=== PATIENT | male | born 1980 | race American Indian/Alaskan Native ===

== ENCOUNTER 2021-11-16 11:54 | Emergency (ER) | payer SELFPAY ==
[2021-11-16] MEDS ORDERED: LIDOCAINE (1%) 10 MG/1 ML VIAL 20 ML MDV INFILTRATI ONE (14:19)
[2021-11-16] MEDS ORDERED: SULFAMETHOXAZOLE/TRIMETHOPRIM 800/160MG DS TAB PO ONE (14:21)
[2021-11-16] MEDS ORDERED: IBUPROFEN 600 MG TAB PO ONE (14:21)
--- NOTE | 2021-11-16 15:44 | Emergency Department Report ---
ED Extremity Problem HPI - General Chief complaint: Extremity Problem,Nontraumatic Stated complaint: R ARM PAIN WITH BUMP/PAINFUL SWOLLEN GROIN Source: patient Mode of arrival: Ambulatory Limitations: No Limitations - History of Present Illness Initial comments: Patient is a 41-year-old -[place] male with no past medical history except chronic recurrent IV drug abuse who presents to the ED with complaint of acute onset persistent painful swollen mild erythematous maculopapular rash on right upper arm for the last 1 week after injecting himself with IV drugs. Patient states that the pain has worsened especially in the last 3 days. Patient states that he had similar symptoms in the same area about 2 or 3 years ago and was incised and drained and resolved after taking antibiotics. Patient denies fever, chills, nausea and vomiting, dizziness, syncope, chest pain, shortness of breath, numbness and tingling or weakness of right arm, fall or back pain. MD Complaint: extremity pain (right upper arm pain due to swollen erythematous rash), extremity swelling (Mildly swollen right upper arm with pain), other (Mild erythematous maculopapular rash on right upper arm) -: Gradual, week(s) (1) Location: upper extremity (Right upper arm) History of Same: Yes (Yes chronic IV drug use) -: Yes arthralgia, No fever, No associated dyspnea, No associated chest pain Radiation: proximal Severity scale (0 -10): 7 Quality: aching, sharp Consistency: constant Improves with: nothing Worsens with: nothing Associated Symptoms: denies other symptoms, arthralgias, rash (Mild erythematous maculopapular rash on right upper arm). denies: chest pain, fever, myalgias - Related Data Previous Rx's Medication Instructions Recorded Last Taken Type Clindamycin [Clindamycin CAP] 300 mg PO Q8H #30 cap 11/16/21 Unknown Rx Ibuprofen [Motrin] 800 mg PO Q8HR PRN #30 tablet 11/16/21 Unknown Rx Sulfamethoxazole/Trimethoprim 1 each PO Q12H #20 tab 11/16/21 Unknown Rx [Bactrim DS TAB] Allergies Allergy/AdvReac Type Severity Reaction Status Date / Time No Known Allergies Allergy Unverified 11/16/21 12:55 ED Review of Systems ROS: Stated complaint: R ARM PAIN WITH BUMP/PAINFUL SWOLLEN GROIN Other details as noted in HPI Constitutional: denies: chills, fever Eyes: denies: eye pain, eye discharge, vision change ENT: denies: ear pain, throat pain Respiratory: denies: cough, shortness of breath, wheezing Cardiovascular: denies: chest pain, palpitations Endocrine: no symptoms reported Gastrointestinal: denies: abdominal pain, nausea, diarrhea Genitourinary: denies: urgency, dysuria Musculoskeletal: arthralgia (Right upper arm pain due to mild erythematous maculopapular rash). denies: back pain, joint swelling Skin: rash (Mildly erythematous maculopapular rash on right upper arm). denies: lesions Neurological: denies: headache, weakness, paresthesias Psychiatric: denies: anxiety, depression Hematological/Lymphatic: denies: easy bleeding, easy bruising ED Past Medical Hx - Past Medical History Previous Medical History?: No - Surgical History Past Surgical History?: No - Medications Home Medications: Home Medications Medication Instructions Recorded Confirmed Last Taken Type Clindamycin [Clindamycin CAP] 300 mg PO Q8H #30 cap 11/16/21 Unknown Rx Ibuprofen [Motrin] 800 mg PO Q8HR PRN #30 tablet 11/16/21 Unknown Rx Sulfamethoxazole/Trimethoprim 1 each PO Q12H #20 tab 11/16/21 Unknown Rx [Bactrim DS TAB] ED Physical Exam - General Limitations: No Limitations General appearance: alert, in no apparent distress - Head Head exam: Present: atraumatic, normocephalic, normal inspection - Eye Eye exam: Present: normal appearance, PERRL, EOMI Pupils: Present: normal accommodation - ENT ENT exam: Present: normal exam, normal orophraynx, mucous membranes moist, TM's normal bilaterally, normal external ear exam - Neck Neck exam: Present: normal inspection, full ROM - Respiratory Respiratory exam: Present: normal lung sounds bilaterally. Absent: respiratory distress, wheezes, rales, rhonchi, stridor, chest wall tenderness, accessory muscle use, decreased breath sounds, other - Cardiovascular Cardiovascular Exam: Present: regular rate, normal rhythm, normal heart sounds. Absent: systolic murmur, diastolic murmur, rubs, gallop - GI/Abdominal GI/Abdominal exam: Present: soft, normal bowel sounds. Absent: tenderness, guarding, hyperactive bowel sounds, hypoactive bowel sounds - Extremities Exam Extremities exam: Present: normal inspection, full ROM, tenderness (Palpable localized right upper arm tenderness with mild swelling due to erythematous maculopapular fluctuant rash), normal capillary refill. Absent: pedal edema, joint swelling, calf tenderness - Back Exam Back exam: Present: normal inspection, full ROM. Absent: tenderness, CVA tenderness (R), CVA tenderness (L), muscle spasm, paraspinal tenderness, vertebral tenderness - Neurological Exam Neurological exam: Present: alert, oriented X3, CN II-XII intact, normal gait, reflexes normal - Psychiatric Psychiatric exam: Present: normal affect, normal mood - Skin Skin exam: Present: warm, dry, intact, rash (Mild erythematous maculopapular fluctuant rash on right upper arm with localized tenderness), erythema. Absent: normal color ED Course Vital Signs 11/16/21 12:43 Temperature 97.6 F Pulse Rate 85 Respiratory 18 Rate Blood Pressure 117/53 [Left] O2 Sat by Pulse 97 Oximetry - I & D Right Upper Arm Type of Procedure: Simple Site: Right upper arm Blade Size: 11 I & D Procedure: betadine prep, sterile drapes applied, sterile dressing applied, gauze wick placed Progress: The area was cleaned with normal saline and Betadine solutions. Lidocaine 1% solution was injected around the area for anesthesia. When anesthesia was fully achieved the area was incised with scalpel blade #11, and thick purulent copious discharge drained from the area. The wound was extensively debrided with normal saline and flocculation's were broken with a hemostat. The wound was packed with iodoform quarter inch gauze and dressed appropriately with 4 x 4 gauze and Tegaderm. Patient tolerated procedure well. Patient was discharged home on pain medications and oral antibiotics and advised to return to the ED in 2 days for wound recheck and packing removal. ED Medical Decision Making - Medical Decision Making This is a 41-year-old -[place] male with no past medical history except chronic recurrent IV drug abuse who presents to the ED with complaint of acute onset persistent painful swollen mild erythematous maculopapular rash on right upper arm for the last 1 week after injecting himself with IV drugs. Patient states that the pain has worsened especially in the last 3 days. Patient states that he had similar symptoms in the same area about 2 or 3 years ago and was incised and drained and resolved after taking antibiotics. In the ED, patient is alert and oriented x3 and is not in any distress. Patient is hemodynamically stable. Patient was treated for pain in the ED and also received initial oral antibiotics in the ED. The area was cleaned with normal saline and Betadine solutions. Lidocaine 1% solution was injected around the area for anesthesia. When anesthesia was fully achieved the area was incised with scalpel blade #11, and thick purulent copious discharge drained from the area. The wound was extensively debrided with normal saline and flocculation's were broken with a hemostat. The wound was packed with iodoform quarter inch gauze and dressed appropriately with 4 x 4 gauze and Tegaderm. Patient tolerated procedure well. Patient was discharged home on pain medications and oral antibiotics and advised to return to the ED in 2 days for wound recheck and packing removal. Patient is advised to return to the ED immediately if symptoms get worse. Patient was otherwise advised to follow-up with his primary care physician in 7 to 10 days for reevaluation. - Differential Diagnosis Cellulitis; puncture wound; IV drug use; cutaneous abscess; folliculitis Critical care attestation.: If time is entered above; I have spent that time in minutes in the direct care of this critically ill patient, excluding procedure time. ED Disposition Clinical Impression: Cellulitis of right upper extremity, Cutaneous abscess of right upper extremity, Skin lesion due to intravenous drug abuse Disposition: 01 HOME / SELF CARE / HOMELESS Is pt being admited?: No Does the pt Need Aspirin: No Condition: Stable Instructions: Skin Abscess, [id number], Cellulitis, Adult, [id number], Substance Use Disorder Additional Instructions: Take medication with food, drink plenty of fluids, follow-up with your primary care physician in 7 to 10 days for reevaluation. Return to the ED immediately if symptoms get worse. Otherwise return to the ED in 2 days for wound recheck and packing removal. Prescriptions: Sulfamethoxazole/Trimethoprim [Bactrim DS TAB] 1 each PO Q12H #20 tab Clindamycin [Clindamycin CAP] 300 mg PO Q8H #30 cap Ibuprofen [Motrin] 800 mg PO Q8HR PRN #30 tablet PRN Reason: Pain , Severe (7-10) Referrals: NANCY BUENO MD [Primary Care Provider] - 7-10 days Forms: Work/School Release Form(ED) Time of Disposition: 15:49 Print Language: SERBIAN
[2021-11-16 16:07] VITALS: BP 146/88
== END 2021-11-16 17:26 | disposition home or self-care (01) ==
LOC: ED 11:54
DX: L02.413 Cutaneous abscess of right upper limb (principal); L03.113 Cellulitis of right upper limb; Z79.899 Other long term (current) drug therapy
CPT/HCPCS: 99282